=== PATIENT | female | born 1950 | race Caucasian/White ===

== ENCOUNTER 2021-09-04 11:20 | Inpatient (IN) | payer OTHER, MEDICARE, BC ==
[2021-09-04 12:12] LABS: Bacteria/HPF None Seen HPF (None Seen); Bilirubin Negative (Negative); Blood, Urine Negative (Negative); Clarity Clear (Clear); Glucose, Urine (Dipstick) Normal (Negative); Ketone, Urine Negative (Negative); Leukocyte Negative Leu/uL (Negative); Nitrite Negative (Negative); Protein, Urine (Dipstick) 200 mg/dL (Neg-Trace); RBC/HPF 0-3 HPF (0-3); Specific Gravity, Urine 1.009 (1.002-1.036); Squamous Epithelial None Seen HPF (0-3); Urobilinogen Normal mg/dL (Less than 2); WBC/HPF 0-3 HPF (0-3); pH, Urine 7.5 (5.0-9.0)
[2021-09-04 12:25] LABS: #Eosinphils 0.1 thou/uL (0.0-0.7); #Lymphocytes 1.1 thou/uL (1.20-3.40); #Monocytes 0.8 thou/uL (0.11-0.59); #Neutrophils 7.3 thou/uL (1.40-6.50); %Basophils 0.2 % (0.0-1.0); %Eosinophils 1.5 % (0.0-10.0); %Lymphocytes 11.5 % (21.0-51.0); %Neutrophils 77.9 % (42.0-75.0); Hemoglobin 13.2 g/dL (12.0-16.0); Mean Corpuscular HGB CONC 32.1 g/dL (32.0-36.0); Mean Corpuscular Hemoglobin 27.7 pg (27.0-31.0); Mean Corpuscular Volume 86.2 fL (78.0-98.0); Mean Platelet Volume 9.4 fL (7.4-10.4); Platelet Count 222 thou/uL (130-400); RBC Distribution Width 14.6 % (11.5-14.5); Red Blood Cell (RBC) Count 4.77 mill/uL (4.20-5.40); White Blood Cell (WBC) Count 9.3 thou/uL (4.8-10.8)
[2021-09-04 12:47] LABS: ALT (SGPT) 22 U/L (8-55); AST (SGOT) 27 U/L (5-34); Albumin 3.8 g/dL (3.4-4.8); Alkaline Phosphatase 100 U/L (40-110); Anion Gap 15 mmol/L (10-20); BUN (Urea Nitrogen) 18 mg/dL (9.8-20.1); Bilirubin, Total 0.5 mg/dL (0.2-1.2); CK (CPK) 59 U/L (29-168); Calc. Creatinine Clearance 0 mL/min (70-130); Carbon Dioxide 27 mmol/L (23-31); Chloride 104 mmol/L (98-107); Glucose 127 mg/dL (83-110); Protein, Total 7.8 g/dL (5.8-8.1); Sodium 142 mmol/L (136-145)
[2021-09-04 15:25] VITALS: BMI 28.3
[2021-09-04] MEDS ORDERED: Ondansetron ODT 4 MG TAB PO PRN (16:17)
[2021-09-04] MEDS ORDERED: Ondansetron PF 4 MG/2 ML Vial IVP PRN (16:18)
[2021-09-04] MEDS ORDERED: Acetaminophen 325 MG TAB PO PRN (16:19)
[2021-09-04 16:53] LABS: SARS-CoV-2 NAA Rapid Test Not Detected (NotDetected)
[2021-09-04] MEDS ORDERED: Acetaminophen 650 MG Suppository PR PRN (17:16)
[2021-09-04] MEDS ORDERED: Dextrose 5% in Water 1,000 ML IV PRN (17:29)
[2021-09-04] MEDS ORDERED: HumaLOG 300 UNITS/3 ML VIAL SC PRN ×2 (17:29)
[2021-09-04] MEDS ORDERED: Dextrose 50% Abboject 50 ML SYRINGE SLOW IVP PRN (17:29)
[2021-09-04] MEDS ORDERED: Electrolyte Replacement Protocol 1 EACH FS SCH (17:30)
[2021-09-04] MEDS ORDERED: hydrALAZINE 20 MG/ML VIAL ONE (18:27)
[2021-09-04] MEDS: hydrALAZINE 20 MG/ML VIAL SLOW IVP PRN (18:32)
[2021-09-04 18:50] LABS: #Eosinphils 0.2 thou/uL (0.0-0.7); #Lymphocytes 1.3 thou/uL (1.20-3.40); #Monocytes 0.7 thou/uL (0.11-0.59); #Neutrophils 5.5 thou/uL (1.40-6.50); %Basophils 0.1 % (0.0-1.0); %Eosinophils 2.2 % (0.0-10.0); %Monocytes 9.4 % (0.0-10.0); %Neutrophils 71.4 % (42.0-75.0); Hemoglobin 13.2 g/dL (12.0-16.0); Mean Corpuscular HGB CONC 32.8 g/dL (32.0-36.0); Mean Corpuscular Hemoglobin 27.9 pg (27.0-31.0); Mean Corpuscular Volume 85.1 fL (78.0-98.0); Mean Platelet Volume 9.5 fL (7.4-10.4); Platelet Count 221 thou/uL (130-400); RBC Distribution Width 14.5 % (11.5-14.5); Red Blood Cell (RBC) Count 4.74 mill/uL (4.20-5.40); White Blood Cell (WBC) Count 7.7 thou/uL (4.8-10.8)
[2021-09-04 19:09] LABS: Anion Gap 15 mmol/L (10-20); BUN (Urea Nitrogen) 17 mg/dL (9.8-20.1); Calc. Creatinine Clearance 44 mL/min (70-130); Calcium 9.7 mg/dL (7.8-10.44); Carbon Dioxide 27 mmol/L (23-31); Chloride 104 mmol/L (98-107); Glucose 111 mg/dL (83-110); Potassium 3.9 mmol/L (3.5-5.1); Sodium 142 mmol/L (136-145)
[2021-09-04 19:27] LABS: Actual Bicarbonate (HCO3a) 25.5 mEq/L (22-28); Base Excess (BEa) 3.2 mEq/L (-2.0 to +3.0); CO2 Tension 31.8 mmHg (35.0-45.0); Calcium, Ionized (arterial) 1.17 mmol/L (1.12-1.30); Carboxyhemoglobin (COHb) 0.7 gm% (0.0-3.0); Hemoglobin (Hb) 13.4 g/dL (12.0-16.0); O2 Tension (PaO2), arterial 81.2 mmHg (> 70.0); pH, Arterial 7.52 (7.35-7.45)
[2021-09-04 19:31] LABS: Puncture Site LRA
[2021-09-05 06:21] LABS: #Eosinphils 0.1 thou/uL (0.0-0.7); #Lymphocytes 1.3 thou/uL (1.20-3.40); #Neutrophils 4.7 thou/uL (1.40-6.50); %Basophils 0.3 % (0.0-1.0); %Eosinophils 1.1 % (0.0-10.0); %Lymphocytes 18.4 % (21.0-51.0); %Monocytes 14.2 % (0.0-10.0); %Neutrophils 65.9 % (42.0-75.0); Hemoglobin 12.6 g/dL (12.0-16.0); Mean Corpuscular HGB CONC 31.9 g/dL (32.0-36.0); Mean Corpuscular Volume 84.7 fL (78.0-98.0); Mean Platelet Volume 9.3 fL (7.4-10.4); Platelet Count 210 thou/uL (130-400); RBC Distribution Width 14.6 % (11.5-14.5); Red Blood Cell (RBC) Count 4.67 mill/uL (4.20-5.40); White Blood Cell (WBC) Count 7.1 thou/uL (4.8-10.8)
[2021-09-05 06:36] LABS: Anion Gap 15 mmol/L (10-20); BUN (Urea Nitrogen) 20 mg/dL (9.8-20.1); Calc. Creatinine Clearance 41 mL/min (70-130); Calcium 9.5 mg/dL (7.8-10.44); Carbon Dioxide 24 mmol/L (23-31); Chloride 104 mmol/L (98-107); Glucose 121 mg/dL (83-110); Magnesium 1.7 mg/dL (1.6-2.6); Potassium 3.6 mmol/L (3.5-5.1); Sodium 139 mmol/L (136-145)
[2021-09-05] MEDS: Enoxaparin Sodium 40 MG/0.4 ML SYRINGE SC SCH (08:38)
[2021-09-05] MEDS: Furosemide 20 MG/2 ML VIAL SLOW IVP SCH (08:39)
[2021-09-05] MEDS ORDERED: Losartan 25 MG TAB PO SCH (09:00)
[2021-09-05] MEDS ORDERED: Non-Formulary Item 1 EACH (Nitrofurantoin Macrocrystal [Nitrofurantoin] 100 MG Capsule) PO SCH (09:00)
[2021-09-05] MEDS: Carvedilol 6.25 MG TAB PO SCH ×2 (09:45→22:42)
[2021-09-05] MEDS: Nitrofurantoin Monohyd/M-Cryst 100 MG CAP PO SCH ×2 (09:45→22:43)
[2021-09-05] MEDS: Aspirin 81 mg Enteric Coated Tablet PO SCH (09:45)
[2021-09-05] MEDS: Rosuvastatin 10 MG TAB PO SCH (09:46)
[2021-09-05] MEDS ORDERED: Magnesium 2 GM/50 ML 2 GM in Premix Bag 1 BAG IVPB SCH (10:00)
[2021-09-05] MEDS ORDERED: Cyanocobalamin 1000 MCG/ML VIAL IM SCH (17:00)
[2021-09-06 06:06] LABS: #Eosinphils 0.3 thou/uL (0.0-0.7); #Lymphocytes 1.4 thou/uL (1.20-3.40); %Basophils 0.4 % (0.0-1.0); %Eosinophils 4.1 % (0.0-10.0); %Lymphocytes 20.5 % (21.0-51.0); %Monocytes 14.5 % (0.0-10.0); %Neutrophils 60.6 % (42.0-75.0); Mean Corpuscular HGB CONC 32.1 g/dL (32.0-36.0); Mean Corpuscular Hemoglobin 27.1 pg (27.0-31.0); Mean Corpuscular Volume 84.5 fL (78.0-98.0); Mean Platelet Volume 9.8 fL (7.4-10.4); Platelet Count 176 thou/uL (130-400); RBC Distribution Width 14.7 % (11.5-14.5); Red Blood Cell (RBC) Count 4.43 mill/uL (4.20-5.40); White Blood Cell (WBC) Count 6.6 thou/uL (4.8-10.8)
[2021-09-06 06:23] LABS: Phosphorus 3.6 mg/dL (2.3-4.7)
[2021-09-06 06:25] LABS: Anion Gap 13 mmol/L (10-20); BUN (Urea Nitrogen) 26 mg/dL (9.8-20.1); Calc. Creatinine Clearance 41 mL/min (70-130); Calcium 9.4 mg/dL (7.8-10.44); Carbon Dioxide 23 mmol/L (23-31); Chloride 104 mmol/L (98-107); Glucose 118 mg/dL (83-110); Potassium 3.3 mmol/L (3.5-5.1); Sodium 137 mmol/L (136-145)
[2021-09-06] MEDS ORDERED: Potassium Chloride 20 MEQ TAB PO SCH (07:00)
[2021-09-06] MEDS ORDERED: Magnesium 2 GM/50 ML 2 GM in Premix Bag 1 BAG IVPB SCH (07:00)
[2021-09-06] MEDS ORDERED: Cyanocobalamin (Vitamin B-12) 1,000 MCG TAB PO SCH (09:00)
[2021-09-06] MEDS: Rosuvastatin 10 MG TAB PO SCH (09:46)
[2021-09-06] MEDS: Aspirin 81 mg Enteric Coated Tablet PO SCH (09:46)
[2021-09-06] MEDS: Nitrofurantoin Monohyd/M-Cryst 100 MG CAP PO SCH ×2 (09:47→20:52)
[2021-09-06] MEDS: Carvedilol 6.25 MG TAB PO SCH ×2 (09:47→20:52)
[2021-09-06] MEDS: Furosemide 20 MG/2 ML VIAL SLOW IVP SCH (09:47)
[2021-09-06] MEDS: Enoxaparin Sodium 40 MG/0.4 ML SYRINGE SC SCH (09:47)
[2021-09-07] MEDS: hydrALAZINE 20 MG/ML VIAL SLOW IVP PRN (05:14)
[2021-09-07 06:03] LABS: Phosphorus 3.2 mg/dL (2.3-4.7)
[2021-09-07 06:08] LABS: Anion Gap 14 mmol/L (10-20); BUN (Urea Nitrogen) 28 mg/dL (9.8-20.1); Calc. Creatinine Clearance 46 mL/min (70-130); Calcium 9.5 mg/dL (7.8-10.44); Carbon Dioxide 24 mmol/L (23-31); Chloride 104 mmol/L (98-107); Glucose 125 mg/dL (83-110); Magnesium 2.2 mg/dL (1.6-2.6); Potassium 3.5 mmol/L (3.5-5.1); Sodium 138 mmol/L (136-145)
[2021-09-07] MEDS ORDERED: Potassium Chloride 20 MEQ TAB PO SCH (07:00)
[2021-09-07] MEDS ORDERED: Cyanocobalamin 1000 MCG/ML VIAL IM SCH (08:30)
[2021-09-07] MEDS: Aspirin 81 mg Enteric Coated Tablet PO SCH (09:55)
[2021-09-07] MEDS: Nitrofurantoin Monohyd/M-Cryst 100 MG CAP PO SCH ×2 (09:55→20:45)
[2021-09-07] MEDS: Carvedilol 6.25 MG TAB PO SCH ×2 (09:56→20:45)
[2021-09-07] MEDS: Rosuvastatin 10 MG TAB PO SCH (09:56)
[2021-09-07] MEDS: Enoxaparin Sodium 40 MG/0.4 ML SYRINGE SC SCH (09:57)
[2021-09-07] MEDS ORDERED: Melatonin 3 MG TAB PO SCH ×2 (19:38→22:09)
[2021-09-07] MEDS ORDERED: Cyanocobalamin (Vitamin B-12) 1,000 MCG TAB PO SCH (21:00)
[2021-09-08 05:14] LABS: #Eosinphils 0.3 thou/uL (0.0-0.7); #Lymphocytes 1.4 thou/uL (1.20-3.40); %Basophils 0.4 % (0.0-1.0); %Eosinophils 4.4 % (0.0-10.0); %Lymphocytes 18.1 % (21.0-51.0); %Monocytes 12.7 % (0.0-10.0); %Neutrophils 64.4 % (42.0-75.0); Hemoglobin 12.3 g/dL (12.0-16.0); Mean Corpuscular Hemoglobin 27.2 pg (27.0-31.0); Mean Platelet Volume 9.1 fL (7.4-10.4); Platelet Count 213 thou/uL (130-400); RBC Distribution Width 14.5 % (11.5-14.5); Red Blood Cell (RBC) Count 4.51 mill/uL (4.20-5.40); White Blood Cell (WBC) Count 7.8 thou/uL (4.8-10.8)
[2021-09-08 05:36] LABS: Anion Gap 15 mmol/L (10-20); BUN (Urea Nitrogen) 30 mg/dL (9.8-20.1); Calc. Creatinine Clearance 46 mL/min (70-130); Calcium 9.8 mg/dL (7.8-10.44); Carbon Dioxide 20 mmol/L (23-31); Chloride 105 mmol/L (98-107); Glucose 126 mg/dL (83-110); Potassium 3.8 mmol/L (3.5-5.1); Sodium 136 mmol/L (136-145)
[2021-09-08] MEDS: Rosuvastatin 10 MG TAB PO SCH (08:12)
[2021-09-08] MEDS: Aspirin 81 mg Enteric Coated Tablet PO SCH (08:12)
[2021-09-08] MEDS: Carvedilol 6.25 MG TAB PO SCH (08:13)
[2021-09-08] MEDS: Nitrofurantoin Monohyd/M-Cryst 100 MG CAP PO SCH (08:16)
[2021-09-08] MEDS: Enoxaparin Sodium 40 MG/0.4 ML SYRINGE SC SCH (08:17)
[2021-09-08] MEDS ORDERED: Cyanocobalamin 1000 MCG/ML VIAL IM SCH (09:00)
[2021-09-08 11:59] VITALS: TEMP 97.6
[2021-09-08 16:57] VITALS: BP 161/66
== END 2021-09-08 18:12 | disposition home health service (06) | DRG 291 ==
LOC: ERS 11:20 → ERHOLD 14:59 → NEURO 19:17 → OBSVTOIN 09-05 08:37
PROVIDERS: ADMIT Internal Medicine; ATTEND Internal Medicine
DX: I13.0 Hypertensive heart and chronic kidney disease with heart failure and stage 1 through stage 4 chronic kidney disease, or unspecified chronic kidney disease (principal); G93.41 Metabolic encephalopathy; I50.33 Acute on chronic diastolic (congestive) heart failure; N17.9 Acute kidney failure, unspecified; N39.0 Urinary tract infection, site not specified; I47.2 Ventricular tachycardia; D32.9 Benign neoplasm of meninges, unspecified; E78.5 Hyperlipidemia, unspecified; I25.10 Atherosclerotic heart disease of native coronary artery without angina pectoris; F41.9 Anxiety disorder, unspecified; E83.42 Hypomagnesemia; N18.30 Chronic kidney disease, stage 3 unspecified; E53.8 Deficiency of other specified B group vitamins; E87.6 Hypokalemia; G40.909 Epilepsy, unspecified, not intractable, without status epilepticus; E11.22 Type 2 diabetes mellitus with diabetic chronic kidney disease; W19.XXXA Unspecified fall, initial encounter; Z20.822 Contact with and (suspected) exposure to COVID-19; Y92.89 Other specified places as the place of occurrence of the external cause; Z91.040 Latex allergy status; Z88.0 Allergy status to penicillin; Z88.2 Allergy status to sulfonamides; Z91.048 Other nonmedicinal substance allergy status; Z79.82 Long term (current) use of aspirin; Z79.899 Other long term (current) drug therapy; I25.2 Old myocardial infarction; Z85.528 Personal history of other malignant neoplasm of kidney; Z95.5 Presence of coronary angioplasty implant and graft; Z94.7 Corneal transplant status
CPT/HCPCS: 36415; 36416; 36600; 51701; 70450; 70553; 71045; 72125; 80048; 80053; 81003; 81015; 82140; 82550; 82553; 82805; 83735; 83880; 84100; 84484; 85025; 87040; 93005; 93306; 93880; 93970; 94760; 96374; 96375; 97139; G0378; J0360; J1650; J1940; J1956; J3420; J3475; U0002

== ENCOUNTER 2021-11-09 16:14 | Outpatient (CLI) | payer BC ==
[2021-11-09 16:42] LABS: Mean Corpuscular HGB CONC 30.4 g/dL (32.0-36.0); Mean Corpuscular Hemoglobin 25.9 pg (27.0-33.0); Mean Corpuscular Volume 85.1 fl (81.6-98.3); Mean Platelet Volume 11.4 fl (7.4-10.4); Platelet Count 233 10x3/uL (150-450); RBC Distribution Width 15.2 % (11.5-14.5); Red Blood Cell (RBC) Count 4.64 10x6/uL (3.90-5.03); White Blood Cell (WBC) Count 5.5 10x3/uL (3.5-10.5)
[2021-11-09 17:08] LABS: INR-International Normal Ratio 0.9; Prothrombin Time 10.5 sec (9.5-12.1)
[2021-11-09 17:16] LABS: Anion Gap 14 mmol/L (10-20); BUN (Urea Nitrogen) 21 mg/dL (9.8-20.1); Calc. Creatinine Clearance 0 mL/min (70-130); Carbon Dioxide 25 mmol/L (23-31); Chloride 104 mmol/L (98-107); Glucose 102 mg/dL (83-110); Potassium 4.1 mmol/L (3.5-5.1); Sodium 139 mmol/L (136-145)
[2021-11-10 11:15] LABS: SARS-CoV-2 PCR by NAA Not Detected (NotDetected)
== END 2021-11-09 16:15 | disposition home or self-care (01) ==
LOC: LABBT 16:14
PROVIDERS: ATTEND Internal Medicine Cardiovascular Disease
DX: Z01.812 Encounter for preprocedural laboratory examination (principal); I47.1 Supraventricular tachycardia; Z20.822 Contact with and (suspected) exposure to COVID-19
CPT/HCPCS: 80048; 85027; 85610; U0003; U0005

== ENCOUNTER 2021-11-11 07:55 | Day surgery (SDC) | payer MEDICARE, BC ==
[2021-11-08 15:13] VITALS: BMI 27.3
[2021-11-11] MEDS ORDERED: Heparin 10,000 UNITS/ 10 ML VIAL ONE ×2 (09:30→11:39)
[2021-11-11] MEDS ORDERED: Meperidine HCl/PF 25 MG/ML VIAL ONE (10:48)
[2021-11-11] MEDS ORDERED: PROPOFOL 200 MG/20 ML VIAL ONE (10:54)
[2021-11-11] MEDS ORDERED: Promethazine HCl 25 MG/ML VIAL ONE (14:07)
== END 2021-11-11 17:10 | disposition home or self-care (01) ==
LOC: SDC 07:55
PROVIDERS: ATTEND Internal Medicine Cardiovascular Disease
PROC: 02583ZZ Destruction of Conduction Mechanism, Percutaneous Approach (ICD-10-PCS; principal; 2021-11-11)
PROC: 02K83ZZ Map Conduction Mechanism, Percutaneous Approach (ICD-10-PCS; 2021-11-11)
DX: I47.1 Supraventricular tachycardia (principal); I25.10 Atherosclerotic heart disease of native coronary artery without angina pectoris; I48.0 Paroxysmal atrial fibrillation; I11.0 Hypertensive heart disease with heart failure; I50.22 Chronic systolic (congestive) heart failure; E78.2 Mixed hyperlipidemia; Z79.02 Long term (current) use of antithrombotics/antiplatelets; Z79.2 Long term (current) use of antibiotics; Z79.899 Other long term (current) drug therapy; Z88.0 Allergy status to penicillin; Z88.2 Allergy status to sulfonamides; Z88.8 Allergy status to other drugs, medicaments and biological substances; Z91.040 Latex allergy status; Z91.048 Other nonmedicinal substance allergy status; Z95.5 Presence of coronary angioplasty implant and graft
CPT/HCPCS: 93005; 93613; 93653; C1730; C1776; C1894; C2630; J1644; J2175; J2550; J2704

== ENCOUNTER 2021-11-19 04:05 | Inpatient (IN) | payer MEDICARE, BC ==
[2021-11-19] MEDS ORDERED: Morphine 10 MG/ML VIAL ONE (05:07)
[2021-11-19] MEDS ORDERED: Iopamidol 370 76% 100 ML VIAL ONE (09:45)
[2021-11-19 10:06] LABS: #Eosinphils 0.1 thou/uL (0.0-0.7); #Lymphocytes 1.2 thou/uL (1.20-3.40); #Monocytes 1.1 thou/uL (0.11-0.59); %Basophils 0.1 % (0.0-1.0); %Lymphocytes 9.6 % (21.0-51.0); %Monocytes 8.7 % (0.0-10.0); %Neutrophils 80.5 % (42.0-75.0); Mean Corpuscular HGB CONC 30.6 g/dL (32.0-36.0); Mean Corpuscular Hemoglobin 26.1 pg (27.0-31.0); Mean Corpuscular Volume 85.5 fL (78.0-98.0); Mean Platelet Volume 8.3 fL (7.4-10.4); Platelet Count 207 thou/uL (130-400); RBC Distribution Width 14.7 % (11.5-14.5); Red Blood Cell (RBC) Count 4.59 mill/uL (4.20-5.40); White Blood Cell (WBC) Count 12.4 thou/uL (4.8-10.8)
[2021-11-19 10:21] LABS: Glucose 124 mg/dL (83-110)
[2021-11-19 10:28] LABS: ALT (SGPT) 35 U/L (8-55); AST (SGOT) 49 U/L (5-34); Albumin 3.5 g/dL (3.4-4.8); Alkaline Phosphatase 107 U/L (40-110); Anion Gap 18 mmol/L (10-20); BUN (Urea Nitrogen) 20 mg/dL (9.8-20.1); Bilirubin, Total 0.4 mg/dL (0.2-1.2); Calc. Creatinine Clearance 0 mL/min (70-130); Calcium 8.7 mg/dL (7.8-10.44); Carbon Dioxide 21 mmol/L (23-31); Chloride 107 mmol/L (98-107); Globulin 3.1 g/dL (2.4-3.5); Glucose 126 mg/dL (83-110); Potassium 4.5 mmol/L (3.5-5.1); Protein, Total 6.6 g/dL (5.8-8.1); Sodium 141 mmol/L (136-145)
[2021-11-19 10:43] LABS: Bacteria/HPF None Seen HPF (None Seen); Bilirubin Negative (Negative); Blood, Urine Negative (Negative); Clarity Clear (Clear); Glucose, Urine (Dipstick) Normal (Negative); Ketone, Urine Negative (Negative); Leukocyte Negative Leu/uL (Negative); Nitrite Negative (Negative); Protein, Urine (Dipstick) 200 mg/dL (Neg-Trace); RBC/HPF 0-3 HPF (0-3); Specific Gravity, Urine 1.012 (1.002-1.036); Squamous Epithelial 0-3 HPF (0-3); Urobilinogen Normal mg/dL (Less than 2); WBC/HPF 0-3 HPF (0-3); pH, Urine 6.5 (5.0-9.0)
[2021-11-19] MEDS ORDERED: TOLTERODINE TARTRATE 4 MG PO PRN (11:34)
[2021-11-19] MEDS ORDERED: Gabapentin 300 MG CAP PO PRN (11:34)
[2021-11-19] MEDS ORDERED: Ondansetron PF 4 MG/2 ML Vial IVP PRN (11:37)
[2021-11-19 12:22] LABS: Lactic Acid 1.3 mmol/L (0.5-2.2)
[2021-11-19 12:24] LABS: Phosphorus 4.2 mg/dL (2.3-4.7)
[2021-11-19 12:25] LABS: CK (CPK) 47 U/L (29-168); Magnesium 1.9 mg/dL (1.6-2.6)
[2021-11-19] MEDS ORDERED: Naloxone HCl 0.4 mg/ml Vial IV SCH (13:31)
[2021-11-19] MEDS ORDERED: Sodium Chloride 0.9% 1,000 ML IV SCH (13:45)
[2021-11-19 18:57] VITALS: BMI 27.4
[2021-11-19] MEDS: Acetaminophen 325 MG TAB PO PRN (20:17)
[2021-11-19] MEDS ORDERED: Rosuvastatin 10 MG TAB PO SCH (21:00)
[2021-11-19] MEDS ORDERED: Famotidine/PF 20 mg/2ml Vial SLOW IVP SCH (21:00)
[2021-11-20 05:11] LABS: #Eosinphils 0.5 thou/uL (0.0-0.7); #Lymphocytes 1.6 thou/uL (1.20-3.40); #Monocytes 0.7 thou/uL (0.11-0.59); #Neutrophils 4.1 thou/uL (1.40-6.50); %Basophils 0.5 % (0.0-1.0); %Eosinophils 7.8 % (0.0-10.0); %Lymphocytes 22.9 % (21.0-51.0); %Monocytes 9.4 % (0.0-10.0); %Neutrophils 59.5 % (42.0-75.0); Hemoglobin 10.1 g/dL (12.0-16.0); Mean Corpuscular HGB CONC 31.1 g/dL (32.0-36.0); Mean Corpuscular Hemoglobin 27.2 pg (27.0-31.0); Mean Corpuscular Volume 87.4 fL (78.0-98.0); Mean Platelet Volume 8.7 fL (7.4-10.4); Platelet Count 164 thou/uL (130-400); RBC Distribution Width 14.7 % (11.5-14.5); Red Blood Cell (RBC) Count 3.71 mill/uL (4.20-5.40)
[2021-11-20 05:38] LABS: Anion Gap 11 mmol/L (10-20); BUN (Urea Nitrogen) 19 mg/dL (9.8-20.1); Calc. Creatinine Clearance 42 mL/min (70-130); Calcium 8.7 mg/dL (7.8-10.44); Carbon Dioxide 27 mmol/L (23-31); Chloride 107 mmol/L (98-107); Glucose 94 mg/dL (83-110); Magnesium 1.7 mg/dL (1.6-2.6); Phosphorus 3.4 mg/dL (2.3-4.7); Potassium 4.5 mmol/L (3.5-5.1); Sodium 140 mmol/L (136-145)
[2021-11-20] MEDS ORDERED: Clopidogrel Bisulfate 75 MG TAB PO SCH (09:00)
[2021-11-20] MEDS: Acetaminophen 325 MG TAB PO PRN (14:36)
[2021-11-20 15:33] VITALS: BP 148/73; TEMP 100.1
== END 2021-11-20 17:18 | DRG 551 ==
LOC: ERS 04:05 → SURG A 11:22
PROVIDERS: ADMIT Surgery; ATTEND Surgery
DX: S32.19XA Other fracture of sacrum, initial encounter for closed fracture (principal); G92.8 Other toxic encephalopathy; S32.592A Other specified fracture of left pubis, initial encounter for closed fracture; I10 Essential (primary) hypertension; E78.5 Hyperlipidemia, unspecified; I25.10 Atherosclerotic heart disease of native coronary artery without angina pectoris; E11.42 Type 2 diabetes mellitus with diabetic polyneuropathy; W18.30XA Fall on same level, unspecified, initial encounter; Y92.009 Unspecified place in unspecified non-institutional (private) residence as the place of occurrence of the external cause; Z95.5 Presence of coronary angioplasty implant and graft; Z85.528 Personal history of other malignant neoplasm of kidney; Z90.5 Acquired absence of kidney; Z79.02 Long term (current) use of antithrombotics/antiplatelets; Z79.899 Other long term (current) drug therapy; Z88.0 Allergy status to penicillin; Z88.2 Allergy status to sulfonamides; Z88.8 Allergy status to other drugs, medicaments and biological substances; Z91.040 Latex allergy status; Z98.84 Bariatric surgery status; Z90.49 Acquired absence of other specified parts of digestive tract; Z98.49 Cataract extraction status, unspecified eye
CPT/HCPCS: 36415; 36416; 51701; 70450; 70496; 70498; 72170; 80048; 80053; 81003; 81015; 82140; 82550; 83605; 83735; 84100; 84146; 85025; 96372; G0390; J2270; J2310; J3475; J3490; J7050; Q9967; S0028

== ENCOUNTER 2021-12-30 09:12 | Outpatient (CLI) | payer BC ==
[2021-12-30] MEDS ORDERED: Iopamidol-370 76% 500 ML 1 ML ONE (12:29)
== END 2021-12-30 09:13 | disposition home or self-care (01) ==
LOC: BICCT 09:12
PROVIDERS: ATTEND Urology
DX: C64.1 Malignant neoplasm of right kidney, except renal pelvis (principal); K86.2 Cyst of pancreas; N28.9 Disorder of kidney and ureter, unspecified; R91.8 Other nonspecific abnormal finding of lung field; M84.454A Pathological fracture, pelvis, initial encounter for fracture; I25.10 Atherosclerotic heart disease of native coronary artery without angina pectoris; I77.810 Thoracic aortic ectasia; K76.9 Liver disease, unspecified; Z90.49 Acquired absence of other specified parts of digestive tract; N28.1 Cyst of kidney, acquired; K57.30 Diverticulosis of large intestine without perforation or abscess without bleeding; M19.90 Unspecified osteoarthritis, unspecified site; Z87.81 Personal history of (healed) traumatic fracture; Z90.5 Acquired absence of kidney; Z98.1 Arthrodesis status
CPT/HCPCS: 71260; 74177; Q9967

== ENCOUNTER 2022-02-22 15:53 | Outpatient (CLI) | payer BC | END 2022-02-22 15:54 | disposition home or self-care (01) | LOC: BICRAD 15:53 | PROVIDERS: ATTEND Podiatrist Foot & Ankle Surgery | DX: S83.92XA Sprain of unspecified site of left knee, initial encounter (principal); S63.502A Unspecified sprain of left wrist, initial encounter; S63.501A Unspecified sprain of right wrist, initial encounter; M19.032 Primary osteoarthritis, left wrist; M85.831 Other specified disorders of bone density and structure, right forearm ==

== ENCOUNTER 2022-06-07 09:27 | Inpatient (IN) | payer MEDICARE, BC ==
[2022-06-07 10:40] LABS: #Eosinphils 0.2 thou/uL (0.0-0.7); #Lymphocytes 1.4 thou/uL (1.20-3.40); #Monocytes 0.6 thou/uL (0.11-0.59); #Neutrophils 3.4 thou/uL (1.40-6.50); %Basophils 0.7 % (0.0-1.0); %Eosinophils 3.5 % (0.0-10.0); %Lymphocytes 24.3 % (21.0-51.0); %Monocytes 10.4 % (0.0-10.0); %Neutrophils 61.2 % (42.0-75.0); Hemoglobin 12.4 g/dL (12.0-16.0); Mean Corpuscular HGB CONC 31.9 g/dL (32.0-36.0); Mean Corpuscular Volume 87.9 fL (78.0-98.0); Mean Platelet Volume 9.2 fL (7.4-10.4); Platelet Count 159 thou/uL (130-400); RBC Distribution Width 14.2 % (11.5-14.5); Red Blood Cell (RBC) Count 4.41 mill/uL (4.20-5.40); White Blood Cell (WBC) Count 5.6 thou/uL (4.8-10.8)
[2022-06-07] MEDS ORDERED: Morphine 4 MG/ML VIAL ONE ×2 (10:43→12:51)
[2022-06-07] MEDS ORDERED: Morphine 2 MG/ML VIAL ONE (10:44)
[2022-06-07 11:01] LABS: ALT (SGPT) 20 U/L (8-55); AST (SGOT) 29 U/L (5-34); Albumin 3.4 g/dL (3.4-4.8); Alkaline Phosphatase 91 U/L (40-110); Anion Gap 13 mmol/L (10-20); BUN (Urea Nitrogen) 14 mg/dL (9.8-20.1); Bilirubin, Total 0.5 mg/dL (0.2-1.2); Calc. Creatinine Clearance 0 mL/min (70-130); Calcium 9.2 mg/dL (7.8-10.44); Carbon Dioxide 29 mmol/L (23-31); Chloride 105 mmol/L (98-107); Estimated GFR 34; Globulin 3.3 g/dL (2.4-3.5); Glucose 114 mg/dL (83-110); Potassium 3.8 mmol/L (3.5-5.1); Protein, Total 6.7 g/dL (5.8-8.1); Sodium 143 mmol/L (136-145)
[2022-06-07 11:40] LABS: CK (CPK) 55 U/L (29-168)
[2022-06-07 11:44] LABS: Bacteria/HPF None Seen HPF (None Seen); Bilirubin Negative (Negative); Blood, Urine Negative (Negative); Clarity Clear (Clear); Glucose, Urine (Dipstick) Normal (Negative); Ketone, Urine Negative (Negative); Leukocyte Negative Leu/uL (Negative); Nitrite Negative (Negative); Protein, Urine (Dipstick) 100 mg/dL (Neg-Trace); RBC/HPF 0-3 HPF (0-3); Specific Gravity, Urine 1.007 (1.002-1.036); Squamous Epithelial 0-3 HPF (0-3); Urobilinogen Normal mg/dL (Less than 2); WBC/HPF 0-3 HPF (0-3); pH, Urine 7.5 (5.0-9.0)
[2022-06-07] MEDS ORDERED: Clindamycin/D5W 900 MG in Premix Bag 1 BAG IVPB SCH (12:45)
[2022-06-07] MEDS ORDERED: hydrALAZINE 20 MG/ML VIAL ONE ×3 (13:12→18:05)
[2022-06-07] MEDS ORDERED: Dextrose 5% in Water 1,000 ML IV PRN (13:38)
[2022-06-07] MEDS ORDERED: Ondansetron PF 4 MG/2 ML Vial IVP PRN (13:38)
[2022-06-07] MEDS ORDERED: hydrALAZINE 20 MG/ML VIAL SLOW IVP PRN (13:38)
[2022-06-07] MEDS ORDERED: Dextrose 50% Abboject 50 ML SYRINGE SLOW IVP PRN (13:38)
[2022-06-07] MEDS ORDERED: Morphine 4 MG/ML VIAL SLOW IVP PRN (13:38)
[2022-06-07] MEDS ORDERED: Morphine 2 MG/ML VIAL SLOW IVP PRN (13:38)
[2022-06-07] MEDS ORDERED: Ondansetron ODT 4 MG TAB PO PRN (13:38)
[2022-06-07] MEDS ORDERED: traMADol HCl 50 MG TAB PO PRN ×2 (13:44→20:35)
[2022-06-07] MEDS ORDERED: Cyclobenzaprine 10 MG TAB PO PRN (13:44)
[2022-06-07 13:45] LABS: SARS-CoV-2 NAA Rapid Test Not Detected (NotDetected)
[2022-06-07] MEDS ORDERED: Sodium Chloride 0.9% 1,000 ML IV SCH (13:45)
[2022-06-07 13:47] LABS: Magnesium 1.9 mg/dL (1.6-2.6); Phosphorus 3.8 mg/dL (2.3-4.7)
[2022-06-07] MEDS ORDERED: traMADol HCl 50 MG TAB PO SCH ×2 (14:00→18:00)
[2022-06-07] MEDS ORDERED: Acetaminophen 500 MG TAB PO SCH (14:00)
[2022-06-07] MEDS ORDERED: Ondansetron PF 4 MG/2 ML Vial ONE (14:22)
[2022-06-07] MEDS ORDERED: Bupivacaine PF 0.5% 30 ML VIAL ONE (14:27)
[2022-06-07] MEDS ORDERED: Phenylephrine 10 MG/ML VIAL ONE (14:49)
[2022-06-07] MEDS ORDERED: Famotidine/PF 20 mg/2ml Vial ONE (14:49)
[2022-06-07] MEDS ORDERED: fentaNYL Citrate/PF 100 MCG/2 ML SYRINGE ONE ×2 (15:05→15:41)
[2022-06-07] MEDS ORDERED: Levofloxacin 500 mg/D5W 100 ml Premix Bag ONE (15:10)
[2022-06-07] MEDS ORDERED: Clindamycin/D5W 900 mg/50 ml Premix Bag ONE (15:10)
[2022-06-07] MEDS ORDERED: Rocuronium Bromide 10 MG/ML (10ML VIAL) ONE (15:14)
[2022-06-07] MEDS ORDERED: Lidocaine 1% MPF 2 ML VIAL ONE (15:14)
[2022-06-07] MEDS ORDERED: ePHEDrine 50 MG/ML VIAL ONE (15:14)
[2022-06-07] MEDS ORDERED: Succinylcholine 200 MG/10 ml SYRINGE FS ONE (15:14)
[2022-06-07] MEDS ORDERED: Promethazine HCl 25 MG/ML VIAL IM PRN (16:49)
[2022-06-07] MEDS ORDERED: PACU-Morphine 4MG/ML VIAL SLOW IVP PRN (16:49)
[2022-06-07] MEDS ORDERED: Promethazine HCl 25 MG/ML VIAL IVPB PRN (16:49)
[2022-06-07] MEDS ORDERED: Ondansetron HCl/PF 4 MG/2 ML Vial IVP PRN (16:49)
[2022-06-07] MEDS ORDERED: SUGAMMADEX SODIUM 200 MG/2 ML VIAL ONE (17:05)
[2022-06-07] MEDS: Acetaminophen 500 MG TAB PO SCH ×2 (19:17→23:24)
[2022-06-07 19:34] VITALS: BMI 32.8
[2022-06-07] MEDS ORDERED: Non-Formulary Item 1 EACH (Melatonin [Melatonin] 5 MG Tablet) PO PRN (19:49)
[2022-06-07] MEDS ORDERED: Losartan 25 MG TAB PO SCH (19:50)
[2022-06-07] MEDS: Senokot S 8.6-50 MG TAB PO SCH (20:05)
[2022-06-07] MEDS: Rosuvastatin 10 MG TAB PO SCH (20:23)
[2022-06-07] MEDS: Melatonin 3 MG TAB PO SCH (20:23)
[2022-06-07] MEDS: Amitriptyline HCl 10 MG TAB PO SCH (20:24)
[2022-06-07] MEDS: traMADol HCl 50 MG TAB PO SCH (20:46)
[2022-06-07] MEDS: Trospium 20 MG TAB PO SCH (20:52)
[2022-06-07] MEDS ORDERED: Famotidine 20 MG TAB PO SCH (21:00)
[2022-06-07] MEDS ORDERED: Gabapentin 300 MG CAP PO PRN (21:00)
[2022-06-07] MEDS: Clindamycin/D5W 900 MG in Premix Bag 1 BAG IVPB SCH (23:24)
[2022-06-08] MEDS: traMADol HCl 50 MG TAB PO SCH (06:03)
[2022-06-08] MEDS: Acetaminophen 500 MG TAB PO SCH (06:03)
[2022-06-08] MEDS: Clindamycin/D5W 900 MG in Premix Bag 1 BAG IVPB SCH ×2 (06:03→12:03)
[2022-06-08 06:26] LABS: #Eosinphils 0.1 thou/uL (0.0-0.7); #Monocytes 1.1 thou/uL (0.11-0.59); #Neutrophils 5.4 thou/uL (1.40-6.50); %Basophils 0.2 % (0.0-1.0); %Eosinophils 1.6 % (0.0-10.0); %Lymphocytes 13.5 % (21.0-51.0); %Monocytes 14.4 % (0.0-10.0); %Neutrophils 70.3 % (42.0-75.0); Hemoglobin 10.6 g/dL (12.0-16.0); Mean Corpuscular HGB CONC 32.4 g/dL (32.0-36.0); Mean Corpuscular Hemoglobin 28.4 pg (27.0-31.0); Mean Corpuscular Volume 87.6 fL (78.0-98.0); Mean Platelet Volume 9.2 fL (7.4-10.4); Platelet Count 139 thou/uL (130-400); RBC Distribution Width 14.2 % (11.5-14.5); Red Blood Cell (RBC) Count 3.73 mill/uL (4.20-5.40); White Blood Cell (WBC) Count 7.7 thou/uL (4.8-10.8)
[2022-06-08 06:50] LABS: Anion Gap 14 mmol/L (10-20); BUN (Urea Nitrogen) 21 mg/dL (9.8-20.1); Calc. Creatinine Clearance 37 mL/min (70-130); Calcium 8.4 mg/dL (7.8-10.44); Carbon Dioxide 23 mmol/L (23-31); Chloride 103 mmol/L (98-107); Estimated GFR 30; Glucose 119 mg/dL (83-110); Magnesium 1.6 mg/dL (1.6-2.6); Potassium 4.2 mmol/L (3.5-5.1); Sodium 136 mmol/L (136-145)
[2022-06-08 06:51] LABS: Phosphorus 4.3 mg/dL (2.3-4.7)
[2022-06-08 07:13] LABS: Bacteria/HPF None Seen HPF (None Seen); Bilirubin Negative (Negative); Blood, Urine Negative (Negative); Clarity Clear (Clear); Glucose, Urine (Dipstick) Normal (Negative); Ketone, Urine Negative (Negative); Leukocyte Negative Leu/uL (Negative); Nitrite Negative (Negative); Protein, Urine (Dipstick) 200 mg/dL (Neg-Trace); RBC/HPF 0-3 HPF (0-3); Specific Gravity, Urine 1.009 (1.002-1.036); Squamous Epithelial None Seen HPF (0-3); Urobilinogen Normal mg/dL (Less than 2); WBC/HPF None Seen HPF (0-3)
[2022-06-08 07:15] LABS: Urine Culture Reflex No No
[2022-06-08] MEDS ORDERED: Magnesium Sulfate 3 GM in Sodium Chloride 0.9% 100 ML IVPB SCH (07:30)
[2022-06-08] MEDS ORDERED: Sodium Chloride 0.9% 1,000 ML IV SCH (07:30)
[2022-06-08] MEDS ORDERED: Magnesium 2 GM/50 ML(in water) 3 GM in Premix Bag 1 BAG IVPB SCH (09:00)
[2022-06-08] MEDS ORDERED: Losartan 25 MG TAB PO SCH (09:00)
[2022-06-08] MEDS: Trospium 20 MG TAB PO SCH (09:04)
[2022-06-08] MEDS: Polyethylene Glycol 3350 17 GM Packet PO SCH (09:04)
[2022-06-08] MEDS: Famotidine 20 MG TAB PO SCH (09:05)
[2022-06-08] MEDS: Senokot S 8.6-50 MG TAB PO SCH ×2 (09:05→21:12)
[2022-06-08] MEDS ORDERED: Acetaminophen/Codeine 30-300mg Tablet PO PRN (10:44)
[2022-06-08] MEDS ORDERED: Acetaminophen 500 MG TAB PO SCH (12:00)
[2022-06-08] MEDS: Acetaminophen 325 MG TAB PO SCH (18:48)
[2022-06-08] MEDS: Rosuvastatin 10 MG TAB PO SCH (21:11)
[2022-06-08] MEDS: Melatonin 3 MG TAB PO SCH (21:11)
[2022-06-08] MEDS: Amitriptyline HCl 10 MG TAB PO SCH (21:11)
[2022-06-09] MEDS: Acetaminophen 325 MG TAB PO SCH ×4 (00:01→18:12)
[2022-06-09 06:10] LABS: #Eosinphils 0.4 thou/uL (0.0-0.7); #Neutrophils 4.9 thou/uL (1.40-6.50); %Basophils 0.2 % (0.0-1.0); %Eosinophils 5.5 % (0.0-10.0); %Lymphocytes 14.1 % (21.0-51.0); %Monocytes 13.2 % (0.0-10.0); Hemoglobin 9.5 g/dL (12.0-16.0); Mean Corpuscular HGB CONC 32.1 g/dL (32.0-36.0); Mean Corpuscular Hemoglobin 28.4 pg (27.0-31.0); Mean Corpuscular Volume 88.3 fL (78.0-98.0); Mean Platelet Volume 9.2 fL (7.4-10.4); Platelet Count 108 thou/uL (130-400); Platelet Morphology Comment Appears Decreased; RBC Distribution Width 14.2 % (11.5-14.5); Red Blood Cell (RBC) Count 3.35 mill/uL (4.20-5.40); White Blood Cell (WBC) Count 7.3 thou/uL (4.8-10.8)
[2022-06-09 07:11] LABS: Anion Gap 11 mmol/L (10-20); BUN (Urea Nitrogen) 22 mg/dL (9.8-20.1); Calc. Creatinine Clearance 36 mL/min (70-130); Calcium 8.1 mg/dL (7.8-10.44); Carbon Dioxide 25 mmol/L (23-31); Chloride 103 mmol/L (98-107); Estimated GFR 28; Glucose 108 mg/dL (83-110); Magnesium 2.2 mg/dL (1.6-2.6); Phosphorus 3.9 mg/dL (2.3-4.7); Potassium 3.9 mmol/L (3.5-5.1); Sodium 135 mmol/L (136-145)
[2022-06-09] MEDS ORDERED: Sodium Chloride 0.9% 1,000 ML IV SCH (08:15)
[2022-06-09] MEDS: Senokot S 8.6-50 MG TAB PO SCH ×2 (09:20→20:46)
[2022-06-09] MEDS: Polyethylene Glycol 3350 17 GM Packet PO SCH (09:20)
[2022-06-09] MEDS: Famotidine 20 MG TAB PO SCH (09:21)
[2022-06-09] MEDS: Melatonin 3 MG TAB PO SCH (20:46)
[2022-06-09] MEDS: Aspirin 81 mg Enteric Coated Tablet PO SCH (20:47)
[2022-06-09] MEDS: Rosuvastatin 10 MG TAB PO SCH (20:47)
[2022-06-09] MEDS: Amitriptyline HCl 10 MG TAB PO SCH (20:47)
[2022-06-09] MEDS ORDERED: Trospium 20 MG TAB PO SCH (21:00)
[2022-06-10] MEDS: Acetaminophen 325 MG TAB PO SCH ×3 (00:59→12:29)
[2022-06-10 06:28] LABS: Anion Gap 14 mmol/L (10-20); BUN (Urea Nitrogen) 22 mg/dL (9.8-20.1); Calc. Creatinine Clearance 41 mL/min (70-130); Calcium 8.1 mg/dL (7.8-10.44); Carbon Dioxide 18 mmol/L (23-31); Chloride 107 mmol/L (98-107); Estimated GFR 34; Glucose 90 mg/dL (83-110); Magnesium 1.9 mg/dL (1.6-2.6); Phosphorus 3.6 mg/dL (2.3-4.7); Potassium 4.2 mmol/L (3.5-5.1); Sodium 135 mmol/L (136-145)
[2022-06-10] MEDS: Famotidine 20 MG TAB PO SCH (09:03)
[2022-06-10] MEDS: Aspirin 81 mg Enteric Coated Tablet PO SCH (09:04)
[2022-06-10] MEDS: Polyethylene Glycol 3350 17 GM Packet PO SCH (09:05)
[2022-06-10] MEDS: Senokot S 8.6-50 MG TAB PO SCH (09:05)
[2022-06-10 12:44] VITALS: BP 146/79; TEMP 98.3
== END 2022-06-10 13:15 | DRG 480 ==
LOC: ERS 09:27 → SDC 14:16 → SURG A 18:44
PROVIDERS: ADMIT Nurse Practitioner Acute Care; ATTEND Surgery
PROC: 0QHB36Z Insertion of Intramedullary Internal Fixation Device into Right Lower Femur, Percutaneous Approach (ICD-10-PCS; principal; 2022-06-07)
PROC: 0PSH04Z Reposition Right Radius with Internal Fixation Device, Open Approach (ICD-10-PCS; 2022-06-07)
DX: S52.571A Other intraarticular fracture of lower end of right radius, initial encounter for closed fracture (principal); S72.141A Displaced intertrochanteric fracture of right femur, initial encounter for closed fracture; N17.9 Acute kidney failure, unspecified; W18.30XA Fall on same level, unspecified, initial encounter; Z20.822 Contact with and (suspected) exposure to COVID-19; E78.5 Hyperlipidemia, unspecified; I25.10 Atherosclerotic heart disease of native coronary artery without angina pectoris; E11.51 Type 2 diabetes mellitus with diabetic peripheral angiopathy without gangrene; I12.9 Hypertensive chronic kidney disease with stage 1 through stage 4 chronic kidney disease, or unspecified chronic kidney disease; E11.22 Type 2 diabetes mellitus with diabetic chronic kidney disease; G40.909 Epilepsy, unspecified, not intractable, without status epilepticus; D32.0 Benign neoplasm of cerebral meninges; N18.30 Chronic kidney disease, stage 3 unspecified; Z90.49 Acquired absence of other specified parts of digestive tract; Z98.84 Bariatric surgery status; Z91.040 Latex allergy status; Z88.2 Allergy status to sulfonamides; Z88.0 Allergy status to penicillin
CPT/HCPCS: 36415; 36416; 70450; 71045; 72170; 76000; 80048; 80053; 81001; 81003; 81015; 83735; 83880; 84100; 84484; 85025; 93005; 96374; 96375; 96376; C1713; G0390; J0360; J1956; J2270; J2370; J2405; J3475; J3490; J7050; S0020; S0028; U0002

== ENCOUNTER 2022-10-18 17:15 | Inpatient (IN) | payer MEDICARE, BC ==
[~2022-10-18 17:15] MED LIST: Iopamidol-370 76% 500 ML 1 ML ONE
[2022-10-18] MEDS ORDERED: hydrALAZINE 20 MG/ML VIAL ONE ×2 (18:00→19:31)
[2022-10-18] MEDS ORDERED: Nitroglycerin 2% Ointment 1 INCH/1 GM Packet ONE (18:00)
[2022-10-18 18:16] LABS: #Eosinphils 0.6 thou/uL (0.0-0.7); #Lymphocytes 2.1 thou/uL (1.20-3.40); #Monocytes 0.7 thou/uL (0.11-0.59); #Neutrophils 4.3 thou/uL (1.40-6.50); %Basophils 0.4 % (0.0-1.0); %Eosinophils 7.6 % (0.0-10.0); %Lymphocytes 27.5 % (21.0-51.0); %Monocytes 9.2 % (0.0-10.0); %Neutrophils 55.4 % (42.0-75.0); Hemoglobin 11.4 g/dL (12.0-16.0); Mean Corpuscular HGB CONC 31.7 g/dL (32.0-36.0); Mean Corpuscular Hemoglobin 27.1 pg (27.0-31.0); Mean Corpuscular Volume 85.6 fl (78.0-98.0); Platelet Count 231 10x3/uL (130-400); RBC Distribution Width 13.6 % (11.5-14.5); Red Blood Cell (RBC) Count 4.19 mill/uL (4.20-5.40); White Blood Cell (WBC) Count 7.7 10x3/uL (4.8-10.8)
[2022-10-18 18:38] LABS: ALT (SGPT) 9 U/L (8-55); AST (SGOT) 18 U/L (5-34); Alkaline Phosphatase 81 U/L (40-110); Anion Gap 15 mmol/L (10-20); BUN (Urea Nitrogen) 24 mg/dL (9.8-20.1); Bilirubin, Total 0.3 mg/dL (0.2-1.2); Calc. Creatinine Clearance 0 mL/min (70-130); Calcium 8.5 mg/dL (7.8-10.44); Carbon Dioxide 21 mmol/L (23-31); Chloride 107 mmol/L (98-107); Estimated GFR 30; Glucose 117 mg/dL (83-110); Potassium 4.2 mmol/L (3.5-5.1); Sodium 139 mmol/L (136-145)
[2022-10-18 19:01] LABS: CKMB 1.1 ng/mL (0-6.6)
[2022-10-18] MEDS ORDERED: Aspirin 325 MG TAB ONE (19:14)
[2022-10-18] MEDS ORDERED: Aspirin 300 MG Suppository ONE (19:39)
[2022-10-18] MEDS ORDERED: Ondansetron PF 4 MG/2 ML Vial ONE (20:07)
[2022-10-18] MEDS ORDERED: hydrALAZINE 20 MG/ML VIAL SLOW IVP PRN (21:49)
[2022-10-18] MEDS ORDERED: Ondansetron PF 4 MG/2 ML Vial IVP PRN (21:49)
[2022-10-18] MEDS ORDERED: Ondansetron ODT 4 MG TAB PO PRN (21:49)
[2022-10-18 22:14] LABS: Troponin I 0.392 ng/mL (< 0.028)
[2022-10-18] MEDS: Acetaminophen 325 MG TAB PO PRN (23:43)
[2022-10-19 01:22] LABS: Troponin I 0.455 ng/mL (< 0.028)
[2022-10-19 05:57] LABS: #Eosinphils 0.2 thou/uL (0.0-0.7); #Lymphocytes 2.2 thou/uL (1.20-3.40); #Monocytes 1.1 thou/uL (0.11-0.59); #Neutrophils 5.7 thou/uL (1.40-6.50); %Basophils 0.5 % (0.0-1.0); %Eosinophils 1.9 % (0.0-10.0); %Lymphocytes 23.8 % (21.0-51.0); %Monocytes 11.4 % (0.0-10.0); %Neutrophils 62.4 % (42.0-75.0); Hemoglobin 11.1 g/dL (12.0-16.0); Mean Corpuscular Hemoglobin 27.3 pg (27.0-31.0); Mean Corpuscular Volume 85.3 fl (78.0-98.0); Mean Platelet Volume 9.2 fL (7.4-10.4); Platelet Count 224 10x3/uL (130-400); RBC Distribution Width 13.7 % (11.5-14.5); Red Blood Cell (RBC) Count 4.07 mill/uL (4.20-5.40); White Blood Cell (WBC) Count 9.2 10x3/uL (4.8-10.8)
[2022-10-19 06:13] LABS: Anion Gap 14 mmol/L (10-20); BUN (Urea Nitrogen) 21 mg/dL (9.8-20.1); Calc. Creatinine Clearance 36 mL/min (70-130); Calcium 8.9 mg/dL (7.8-10.44); Carbon Dioxide 22 mmol/L (23-31); Cardiac Risk 3.7 (Less than 4.5); Chloride 107 mmol/L (98-107); Cholesterol 216 mg/dl (< 200 Desired); Estimated GFR 31; Glucose 111 mg/dL (83-110); HDL Cholesterol 58 mg/dL (>60 Neg Risk); LDL Cholesterol, Calculated 140 mg/dL; Potassium 4.2 mmol/L (3.5-5.1); Sodium 139 mmol/L (136-145); Triglycerides 91 mg/dL (Less than 150)
[2022-10-19] MEDS: Acetaminophen 650 MG Suppository PR PRN ×3 (06:15→20:16)
[2022-10-19] MEDS: Aspirin 81 mg Enteric Coated Tablet PO SCH (09:25)
[2022-10-19 10:31] LABS: Troponin I 0.489 ng/mL (< 0.028)
[2022-10-19] MEDS ORDERED: Labetalol HCl 100 MG/20 ML VIAL ONE (12:13)
[2022-10-19] MEDS ORDERED: Labetalol HCl 100 MG/20 ML VIAL SLOW IVP SCH (12:15)
[2022-10-19] MEDS ORDERED: Lorazepam 2 MG/ML VIAL SLOW IVP SCH ×2 (12:30)
[2022-10-19 15:08] LABS: Troponin I 0.491 ng/mL (< 0.028)
[2022-10-19 17:36] LABS: Bacteria/HPF None Seen HPF (None Seen); Bilirubin Negative (Negative); Blood, Urine 1+ (Negative); CAUTI Indications for Culture Alt mental st,lethar; Clarity Turbid (Clear); Glucose, Urine (Dipstick) 50 mg/dL (Negative); Ketone, Urine Negative (Negative); Leukocyte Negative Leu/uL (Negative); Nitrite Negative (Negative); Protein, Urine (Dipstick) 300 mg/dL (Neg-Trace); Squamous Epithelial 0-3 HPF (0-3); Urobilinogen Normal mg/dL (Less than 2); WBC/HPF 21-50 HPF (0-3)
[2022-10-19] MEDS ORDERED: diphenhydrAMINE 50 MG/ML VIAL IVP PRN (17:38)
[2022-10-19 17:42] LABS: Specific Gravity, Urine 1.045 (1.002-1.036)
[2022-10-19 17:43] LABS: Urine Culture Reflex Yes Yes
[2022-10-19] MEDS ORDERED: Aspirin 300 MG Suppository PR SCH (18:15)
[2022-10-19] MEDS ORDERED: cefTRIAXone\\ROCEPHIN 2 GM in Sodium Chloride 0.9% 100 ML IVPB SCH (19:00)
[2022-10-19] MEDS: Lactated Ringer's 1,000 ML IV SCH (19:02)
[2022-10-19 19:44] LABS: Critical Call Chem Troponin I RESULT DECREASING; Troponin I 0.477 ng/mL (< 0.028)
[2022-10-19] MEDS: Senokot S 8.6-50 MG TAB PO SCH (20:16)
[2022-10-19] MEDS: Amitriptyline HCl 10 MG TAB PO SCH (20:16)
[2022-10-19] MEDS: Sertraline 100 MG TAB PO SCH (20:16)
[2022-10-19] MEDS: Atorvastatin Calcium 40 MG TAB PO SCH (20:16)
[2022-10-19] MEDS ORDERED: Donepezil HCl 5 MG TAB PO SCH (21:00)
[2022-10-20] MEDS: Lorazepam 2 MG/ML VIAL SLOW IVP SCH ×2 (00:34→01:17)
[2022-10-20 05:03] LABS: Critical Call Chem Troponin I RESULT DECREASING; Troponin I 0.412 ng/mL (< 0.028)
[2022-10-20] MEDS ORDERED: Lorazepam 2 MG/ML VIAL ONE (07:50)
[2022-10-20] MEDS ORDERED: Lorazepam 2 MG/ML VIAL SLOW IVP SCH ×2 (08:00→18:00)
[2022-10-20] MEDS: Senokot S 8.6-50 MG TAB PO SCH ×2 (11:38→21:29)
[2022-10-20] MEDS: Aspirin 300 MG Suppository PR SCH (11:41)
[2022-10-20] MEDS ORDERED: Melatonin 3 MG TAB PO PRN (16:57)
[2022-10-20] MEDS: Lactated Ringer's 1,000 ML IV SCH (17:15)
[2022-10-20] MEDS: Amitriptyline HCl 10 MG TAB PO SCH (21:21)
[2022-10-20] MEDS: Atorvastatin Calcium 40 MG TAB PO SCH (21:22)
[2022-10-20] MEDS: Sertraline 100 MG TAB PO SCH (21:22)
[2022-10-20] MEDS: QUEtiapine 25 MG TAB PO SCH (21:22)
[2022-10-20] MEDS: Acetaminophen 325 MG TAB PO PRN (21:27)
[2022-10-20] MEDS: Melatonin 3 MG TAB PO SCH (22:57)
[2022-10-21] MEDS: Lactated Ringer's 1,000 ML IV SCH (00:45)
[2022-10-21] MEDS: Acetaminophen 325 MG TAB PO PRN (03:55)
[2022-10-21] MEDS: Aspirin 300 MG Suppository PR SCH (09:10)
[2022-10-21] MEDS: Senokot S 8.6-50 MG TAB PO SCH ×2 (09:16→20:28)
[2022-10-21 16:57] LABS: Prothrombin Time 13.2 sec (12.0-14.7)
[2022-10-21 16:58] LABS: D-Dimer Test 1.23 *mcg/mL (0.27-0.43)
[2022-10-21] MEDS: Atorvastatin Calcium 40 MG TAB PO SCH (20:28)
[2022-10-21] MEDS: Sertraline 100 MG TAB PO SCH (20:29)
[2022-10-21] MEDS: QUEtiapine 25 MG TAB PO SCH (20:29)
[2022-10-21] MEDS: Amitriptyline HCl 10 MG TAB PO SCH (20:29)
[2022-10-21] MEDS: Melatonin 3 MG TAB PO SCH (20:29)
[2022-10-22] MEDS ORDERED: Non-Formulary Item 1 EACH (Melatonin [Melatonin] 5 MG Tablet) PO PRN (08:11)
[2022-10-22] MEDS ORDERED: Melatonin 3 MG TAB PO PRN (08:34)
[2022-10-22] MEDS ORDERED: Non-Formulary Item 1 EACH (Losartan Potassium [Cozaar] 50 MG Tab) PO SCH (09:00)
[2022-10-22] MEDS ORDERED: FLU VACC QS2022-23(65YR UP)/PF 240 MCG/0.7 ML SYRINGE IM ONE (09:00)
[2022-10-22] MEDS: Senokot S 8.6-50 MG TAB PO SCH ×3 (09:31→21:38)
[2022-10-22] MEDS: Aspirin 81 mg Enteric Coated Tablet PO SCH ×2 (09:31→10:34)
[2022-10-22] MEDS: Losartan 25 MG TAB PO SCH ×2 (09:32→10:34)
[2022-10-22] MEDS ORDERED: Losartan 25 MG TAB PO SCH ×2 (12:10→12:30)
[2022-10-22] MEDS ORDERED: hydrALAZINE 20 MG/ML VIAL SLOW IVP PRN (12:37)
[2022-10-22] MEDS ORDERED: Aspirin 300 MG Suppository PR SCH (15:00)
[2022-10-22] MEDS ORDERED: QUEtiapine 25 MG TAB PO SCH (21:00)
[2022-10-22] MEDS: Sertraline 100 MG TAB PO SCH (21:37)
[2022-10-22] MEDS: Melatonin 3 MG TAB PO SCH (21:37)
[2022-10-22] MEDS: Amitriptyline HCl 10 MG TAB PO SCH (21:37)
[2022-10-22] MEDS: Nitrofurantoin Macrocrystal 50 MG CAP PO SCH (21:37)
[2022-10-22] MEDS: Atorvastatin Calcium 40 MG TAB PO SCH (21:37)
[2022-10-23] MEDS: Nitrofurantoin Macrocrystal 50 MG CAP PO SCH (03:52)
[2022-10-23 05:16] LABS: #Eosinphils 0.6 thou/uL (0.0-0.7); #Lymphocytes 1.3 thou/uL (1.20-3.40); #Monocytes 0.7 thou/uL (0.11-0.59); #Neutrophils 4.5 thou/uL (1.40-6.50); %Basophils 0.1 % (0.0-1.0); %Eosinophils 9.1 % (0.0-10.0); %Monocytes 9.7 % (0.0-10.0); Hemoglobin 12.4 g/dL (12.0-16.0); Mean Corpuscular HGB CONC 32.2 g/dL (32.0-36.0); Mean Platelet Volume 8.5 fL (7.4-10.4); Platelet Count 238 10x3/uL (130-400); RBC Distribution Width 13.6 % (11.5-14.5); Red Blood Cell (RBC) Count 4.41 mill/uL (4.20-5.40); White Blood Cell (WBC) Count 7.1 10x3/uL (4.8-10.8)
[2022-10-23 05:44] LABS: Anion Gap 12 mmol/L (10-20); BUN (Urea Nitrogen) 20 mg/dL (9.8-20.1); Calc. Creatinine Clearance 79 mL/min (70-130); Calcium 8.9 mg/dL (7.8-10.44); Carbon Dioxide 25 mmol/L (23-31); Chloride 106 mmol/L (98-107); Estimated GFR 30; Glucose 131 mg/dL (83-110); Potassium 3.6 mmol/L (3.5-5.1); Sodium 139 mmol/L (136-145)
[2022-10-23] MEDS: Aspirin 300 MG Suppository PR SCH (09:51)
[2022-10-23] MEDS ORDERED: Ciprofloxacin 500 MG TAB PO SCH (10:15)
[2022-10-23] MEDS: Losartan 25 MG TAB PO SCH (11:47)
[2022-10-23] MEDS: Aspirin 81 mg Enteric Coated Tablet PO SCH (13:38)
[2022-10-23] MEDS: Senokot S 8.6-50 MG TAB PO SCH ×2 (13:48→21:09)
[2022-10-23 15:05] LABS: Cardiolipin IgG Ab 1.1 GPL-U/mL (<10 Negative); Cardiolipin IgM Ab 2.4 MPL-U/mL (<10 Negative); EliA APS New Method **** NEW METHOD ****
[2022-10-23] MEDS: Clopidogrel Bisulfate 75 MG TAB PO SCH (15:57)
[2022-10-23] MEDS: hydrALAZINE 20 MG/ML VIAL SLOW IVP PRN (15:57)
[2022-10-23] MEDS ORDERED: Haloperidol Lactate 5 MG/ML VIAL IM SCH (19:00)
[2022-10-23] MEDS: Atorvastatin Calcium 40 MG TAB PO SCH (21:09)
[2022-10-23] MEDS: Melatonin 3 MG TAB PO SCH (21:09)
[2022-10-23] MEDS: Amitriptyline HCl 10 MG TAB PO SCH (21:09)
[2022-10-23] MEDS: Sertraline 100 MG TAB PO SCH (21:09)
[2022-10-23] MEDS: Ciprofloxacin 500 MG TAB PO SCH (21:09)
[2022-10-23] MEDS: QUEtiapine 25 MG TAB PO SCH (21:10)
[2022-10-24] MEDS ORDERED: cloNIDine 0.1 MG TAB PO SCH (01:45)
[2022-10-24] MEDS: Ciprofloxacin 500 MG TAB PO SCH ×2 (05:21→21:51)
[2022-10-24 05:40] LABS: #Eosinphils 0.6 thou/uL (0.0-0.7); #Lymphocytes 1.2 thou/uL (1.20-3.40); #Neutrophils 5.7 thou/uL (1.40-6.50); %Basophils 0.5 % (0.0-1.0); %Eosinophils 6.7 % (0.0-10.0); %Lymphocytes 14.2 % (21.0-51.0); %Monocytes 11.2 % (0.0-10.0); %Neutrophils 67.3 % (42.0-75.0); Hemoglobin 12.2 g/dL (12.0-16.0); Mean Corpuscular HGB CONC 31.4 g/dL (32.0-36.0); Mean Corpuscular Hemoglobin 26.8 pg (27.0-31.0); Mean Corpuscular Volume 85.5 fl (78.0-98.0); Mean Platelet Volume 8.7 fL (7.4-10.4); Platelet Count 257 10x3/uL (130-400); RBC Distribution Width 13.8 % (11.5-14.5); Red Blood Cell (RBC) Count 4.54 mill/uL (4.20-5.40); White Blood Cell (WBC) Count 8.5 10x3/uL (4.8-10.8)
[2022-10-24 05:58] LABS: Anion Gap 11 mmol/L (10-20); BUN (Urea Nitrogen) 17 mg/dL (9.8-20.1); Calc. Creatinine Clearance 73 mL/min (70-130); Calcium 9.1 mg/dL (7.8-10.44); Carbon Dioxide 27 mmol/L (23-31); Chloride 106 mmol/L (98-107); Estimated GFR 28; Glucose 125 mg/dL (83-110); Potassium 3.7 mmol/L (3.5-5.1); Sodium 140 mmol/L (136-145)
[2022-10-24] MEDS: Senokot S 8.6-50 MG TAB PO SCH ×2 (11:12→22:14)
[2022-10-24] MEDS: Clopidogrel Bisulfate 75 MG TAB PO SCH (11:12)
[2022-10-24] MEDS: Aspirin 81 mg Enteric Coated Tablet PO SCH (11:12)
[2022-10-24] MEDS: QUEtiapine 25 MG TAB PO SCH ×2 (11:12→21:51)
[2022-10-24] MEDS: Aspirin 300 MG Suppository PR SCH (11:13)
[2022-10-24] MEDS: Losartan 25 MG TAB PO SCH (11:22)
[2022-10-24] MEDS ORDERED: Amlodipine 10 MG TAB PO SCH (15:30)
[2022-10-24 18:00] VITALS: BMI 60.5
[2022-10-24] MEDS: Atorvastatin Calcium 40 MG TAB PO SCH (21:51)
[2022-10-24] MEDS: Sertraline 100 MG TAB PO SCH (21:51)
[2022-10-24] MEDS: Amitriptyline HCl 10 MG TAB PO SCH (21:51)
[2022-10-24] MEDS: Melatonin 3 MG TAB PO SCH (21:51)
[2022-10-25] MEDS: Ciprofloxacin 500 MG TAB PO SCH ×2 (05:34→19:43)
[2022-10-25] MEDS: Clopidogrel Bisulfate 75 MG TAB PO SCH ×3 (09:02→10:49)
[2022-10-25] MEDS: Losartan 25 MG TAB PO SCH ×3 (09:02→10:49)
[2022-10-25] MEDS: Amlodipine 5 MG TAB PO SCH ×3 (09:02→10:49)
[2022-10-25] MEDS: Aspirin 81 mg Enteric Coated Tablet PO SCH ×3 (09:02→10:49)
[2022-10-25] MEDS: Senokot S 8.6-50 MG TAB PO SCH ×5 (09:03→19:54)
[2022-10-25] MEDS: QUEtiapine 25 MG TAB PO SCH ×4 (09:03→19:43)
[2022-10-25 15:35] LABS: Factor VIII Test 227.7 % ACTIVE (56-157)
[2022-10-25] MEDS: Atorvastatin Calcium 40 MG TAB PO SCH ×2 (19:42→19:54)
[2022-10-25] MEDS: Melatonin 3 MG TAB PO SCH (19:42)
[2022-10-25] MEDS: Amitriptyline HCl 10 MG TAB PO SCH ×2 (19:42→19:54)
[2022-10-25] MEDS: Sertraline 100 MG TAB PO SCH (19:43)
[2022-10-26] MEDS ORDERED: hydrALAZINE 10 MG TAB PO SCH (02:00)
[2022-10-26] MEDS: hydrALAZINE 20 MG/ML VIAL SLOW IVP PRN ×2 (04:27→21:33)
[2022-10-26] MEDS: Ciprofloxacin 500 MG TAB PO SCH ×3 (05:56→21:28)
[2022-10-26] MEDS: Amlodipine 5 MG TAB PO SCH (09:32)
[2022-10-26] MEDS: Losartan 25 MG TAB PO SCH (09:33)
[2022-10-26] MEDS: Senokot S 8.6-50 MG TAB PO SCH ×2 (09:33→21:32)
[2022-10-26] MEDS: Aspirin 81 mg Enteric Coated Tablet PO SCH (09:33)
[2022-10-26] MEDS: QUEtiapine 25 MG TAB PO SCH ×2 (09:33→21:28)
[2022-10-26] MEDS: Clopidogrel Bisulfate 75 MG TAB PO SCH (09:33)
[2022-10-26] MEDS ORDERED: Amlodipine 10 MG TAB PO SCH (17:30)
[2022-10-26] MEDS: Atorvastatin Calcium 40 MG TAB PO SCH (21:31)
[2022-10-26] MEDS: Melatonin 3 MG TAB PO SCH (21:31)
[2022-10-26] MEDS: Sertraline 100 MG TAB PO SCH (21:31)
[2022-10-26] MEDS: Amitriptyline HCl 10 MG TAB PO SCH (21:31)
[2022-10-27] MEDS: Ciprofloxacin 500 MG TAB PO SCH (05:52)
[2022-10-27] MEDS: Losartan 25 MG TAB PO SCH (09:18)
[2022-10-27] MEDS: Clopidogrel Bisulfate 75 MG TAB PO SCH (09:18)
[2022-10-27] MEDS: QUEtiapine 25 MG TAB PO SCH ×2 (09:18→20:12)
[2022-10-27] MEDS: Senokot S 8.6-50 MG TAB PO SCH ×2 (09:18→20:17)
[2022-10-27] MEDS: Aspirin 81 mg Enteric Coated Tablet PO SCH (09:18)
[2022-10-27] MEDS: Amlodipine 10 MG TAB PO SCH (09:37)
[2022-10-27 10:35] LABS: Anion Gap 17 mmol/L (10-20); BUN (Urea Nitrogen) 35 mg/dL (9.8-20.1); Calc. Creatinine Clearance 57 mL/min (70-130); Carbon Dioxide 21 mmol/L (23-31); Chloride 108 mmol/L (98-107); Estimated GFR 21; Glucose 128 mg/dL (83-110); Sodium 142 mmol/L (136-145)
[2022-10-27 11:21] LABS: #Eosinphils 0.2 thou/uL (0.0-0.7); #Monocytes 0.6 thou/uL (0.11-0.59); #Neutrophils 5.1 thou/uL (1.40-6.50); %Basophils 0.5 % (0.0-1.0); %Eosinophils 2.5 % (0.0-10.0); %Lymphocytes 14.2 % (21.0-51.0); %Monocytes 8.8 % (0.0-10.0); %Neutrophils 74.1 % (42.0-75.0); Hemoglobin 11.8 g/dL (12.0-16.0); Mean Corpuscular Hemoglobin 27.3 pg (27.0-31.0); Mean Corpuscular Volume 85.3 fl (78.0-98.0); Mean Platelet Volume 9.3 fL (7.4-10.4); Platelet Count 248 10x3/uL (130-400); Red Blood Cell (RBC) Count 4.31 mill/uL (4.20-5.40); White Blood Cell (WBC) Count 6.8 10x3/uL (4.8-10.8)
[2022-10-27] MEDS: Sodium Chloride 0.9% 1,000 ML IV SCH (17:10)
[2022-10-27] MEDS: Amitriptyline HCl 10 MG TAB PO SCH (20:12)
[2022-10-27] MEDS: Melatonin 3 MG TAB PO SCH (20:12)
[2022-10-27] MEDS: hydrALAZINE 20 MG/ML VIAL SLOW IVP PRN (20:12)
[2022-10-27] MEDS: Atorvastatin Calcium 40 MG TAB PO SCH (20:12)
[2022-10-27] MEDS: Sertraline 100 MG TAB PO SCH (20:16)
[2022-10-28] MEDS: hydrALAZINE 20 MG/ML VIAL SLOW IVP PRN (04:45)
[2022-10-28 05:41] LABS: #Eosinphils 0.2 thou/uL (0.0-0.7); #Lymphocytes 1.2 thou/uL (1.20-3.40); #Monocytes 0.9 thou/uL (0.11-0.59); #Neutrophils 6.7 thou/uL (1.40-6.50); %Basophils 0.2 % (0.0-1.0); %Eosinophils 2.2 % (0.0-10.0); %Lymphocytes 13.1 % (21.0-51.0); %Monocytes 9.9 % (0.0-10.0); %Neutrophils 74.6 % (42.0-75.0); Hemoglobin 12.1 g/dL (12.0-16.0); Mean Corpuscular HGB CONC 32.4 g/dL (32.0-36.0); Mean Corpuscular Hemoglobin 27.5 pg (27.0-31.0); Platelet Count 250 10x3/uL (130-400); RBC Distribution Width 13.9 % (11.5-14.5); Red Blood Cell (RBC) Count 4.38 mill/uL (4.20-5.40)
[2022-10-28 06:04] LABS: Anion Gap 16 mmol/L (10-20); BUN (Urea Nitrogen) 36 mg/dL (9.8-20.1); Calc. Creatinine Clearance 63 mL/min (70-130); Calcium 9.1 mg/dL (7.8-10.44); Carbon Dioxide 21 mmol/L (23-31); Chloride 110 mmol/L (98-107); Estimated GFR 23; Glucose 119 mg/dL (83-110); Potassium 3.8 mmol/L (3.5-5.1); Sodium 143 mmol/L (136-145)
[2022-10-28] MEDS: Amlodipine 10 MG TAB PO SCH (08:35)
[2022-10-28] MEDS: Aspirin 81 mg Enteric Coated Tablet PO SCH (08:35)
[2022-10-28] MEDS: Clopidogrel Bisulfate 75 MG TAB PO SCH ×2 (08:36→09:24)
[2022-10-28] MEDS: QUEtiapine 25 MG TAB PO SCH ×2 (08:36→09:24)
[2022-10-28] MEDS: Sodium Chloride 0.9% 1,000 ML IV SCH (08:37)
[2022-10-28] MEDS: Senokot S 8.6-50 MG TAB PO SCH ×2 (08:59→09:24)
[2022-10-28] MEDS ORDERED: cloNIDine 0.2mg/24 Hour PATCH TD SCH (10:00)
[2022-10-28 11:53] VITALS: BP 176/79; TEMP 97.5
[2022-10-30 17:13] LABS: Activated Protein C Resistance 2.6 ratio (.)
[2022-10-31 13:50] LABS: HEX PHOS LA Tube 1 47.7 SEC; HEX PHOS LA Tube 2 41.1 SEC; Hexagonal Phospholipid Neut 6.6 SEC (0-8.0)
[2022-10-31 15:13] LABS: Protein C Activity 107 % (78-152)
== END 2022-10-28 13:15 | DRG 64 ==
LOC: ERS 17:15 → NEURO 20:03
PROVIDERS: ADMIT Family Medicine; ATTEND Family Medicine
DX: I63.9 Cerebral infarction, unspecified (principal); G93.41 Metabolic encephalopathy; N39.0 Urinary tract infection, site not specified; N17.9 Acute kidney failure, unspecified; G81.91 Hemiplegia, unspecified affecting right dominant side; I16.1 Hypertensive emergency; F05 Delirium due to known physiological condition; R29.704 NIHSS score 4; Z20.822 Contact with and (suspected) exposure to COVID-19; Z96.0 Presence of urogenital implants; B95.4 Other streptococcus as the cause of diseases classified elsewhere; E78.5 Hyperlipidemia, unspecified; I48.0 Paroxysmal atrial fibrillation; E11.22 Type 2 diabetes mellitus with diabetic chronic kidney disease; I25.10 Atherosclerotic heart disease of native coronary artery without angina pectoris; I12.9 Hypertensive chronic kidney disease with stage 1 through stage 4 chronic kidney disease, or unspecified chronic kidney disease; G40.909 Epilepsy, unspecified, not intractable, without status epilepticus; K21.9 Gastro-esophageal reflux disease without esophagitis; R47.89 Other speech disturbances; R47.81 Slurred speech; D63.1 Anemia in chronic kidney disease; R77.8 Other specified abnormalities of plasma proteins; D32.0 Benign neoplasm of cerebral meninges; R29.810 Facial weakness; R29.6 Repeated falls; N18.32 Chronic kidney disease, stage 3b; Z95.818 Presence of other cardiac implants and grafts; Z91.199 Patient's noncompliance with other medical treatment and regimen due to unspecified reason; Z88.0 Allergy status to penicillin; Z88.2 Allergy status to sulfonamides; Z88.8 Allergy status to other drugs, medicaments and biological substances; Z91.09 Other allergy status, other than to drugs and biological substances; Z79.899 Other long term (current) drug therapy; Z79.82 Long term (current) use of aspirin; Z94.7 Corneal transplant status; Z98.890 Other specified postprocedural states; Z91.81 History of falling
CPT/HCPCS: 36415; 36416; 70450; 70496; 70498; 70551; 80048; 80053; 80061; 81001; 82140; 82553; 83090; 84484; 85025; 85240; 85300; 85303; 85305; 85307; 85379; 85598; 85610; 85730; 86147; 87086; 87811; 93005; 93010; 93306; 95712; 95816; 95819; 95957; 96374; J0360; J0696; J1630; J1650; J2060; J2405; J3490; J7050; J7120; Q9967; U0003; U0005

== ENCOUNTER 2022-11-24 10:01 | Emergency (ER) | payer BC, MEDICARE ==
[~2022-11-24 10:01] MED LIST changes: -Iopamidol-370 76% 500 ML 1 ML ONE; +cloNIDine 0.2mg/24 Hour PATCH TD SCH
[2022-11-24 11:42] LABS: #Eosinphils 0.3 thou/uL (0.0-0.7); #Lymphocytes 1.1 thou/uL (1.20-3.40); #Monocytes 0.5 thou/uL (0.11-0.59); #Neutrophils 4.2 thou/uL (1.40-6.50); %Basophils 0.2 % (0.0-1.0); %Eosinophils 4.4 % (0.0-10.0); %Lymphocytes 18.1 % (21.0-51.0); %Neutrophils 69.3 % (42.0-75.0); Hemoglobin 13.1 g/dL (12.0-16.0); Mean Corpuscular HGB CONC 31.3 g/dL (32.0-36.0); Mean Corpuscular Hemoglobin 26.6 pg (27.0-31.0); Mean Platelet Volume 8.7 fL (7.4-10.4); Platelet Count 221 10x3/uL (130-400); RBC Distribution Width 14.6 % (11.5-14.5); Red Blood Cell (RBC) Count 4.92 mill/uL (4.20-5.40); White Blood Cell (WBC) Count 6.1 10x3/uL (4.8-10.8)
[2022-11-24 11:56] LABS: ALT (SGPT) 15 U/L (8-55); AST (SGOT) 27 U/L (5-34); Albumin 3.2 g/dL (3.4-4.8); Alkaline Phosphatase 86 U/L (40-110); Anion Gap 15 mmol/L (10-20); BUN (Urea Nitrogen) 30 mg/dL (9.8-20.1); Bilirubin, Total 0.4 mg/dL (0.2-1.2); Calc. Creatinine Clearance 0 mL/min (70-130); Calcium 9.9 mg/dL (7.8-10.44); Carbon Dioxide 23 mmol/L (23-31); Chloride 107 mmol/L (98-107); Estimated GFR 29; Globulin 3.6 g/dL (2.4-3.5); Glucose 126 mg/dL (83-110); Potassium 4.1 mmol/L (3.5-5.1); Protein, Total 6.8 g/dL (5.8-8.1); Sodium 141 mmol/L (136-145)
[2022-11-24 12:18] LABS: CKMB 3.1 ng/mL (0-6.6)
== END 2022-11-24 12:53 | disposition home or self-care (01) ==
LOC: ERS 10:01
DX: I10 Essential (primary) hypertension (principal); E11.9 Type 2 diabetes mellitus without complications; E78.00 Pure hypercholesterolemia, unspecified; K21.9 Gastro-esophageal reflux disease without esophagitis; Z79.82 Long term (current) use of aspirin; Z79.899 Other long term (current) drug therapy
CPT/HCPCS: 36415; 80053; 82553; 84484; 85025; 93005

== ENCOUNTER 2023-07-28 06:04 | Observation (INO) | payer BC ==
[2023-07-28] MEDS ORDERED: Haloperidol Lactate 5 MG/ML VIAL ONE (06:30)
[2023-07-28 07:15] LABS: #Eosinphils 0.3 thou/uL (0.0-0.7); #Monocytes 0.6 thou/uL (0.11-0.59); #Neutrophils 6.5 thou/uL (1.40-6.50); %Basophils 0.5 % (0.0-1.0); %Eosinophils 3.2 % (0.0-10.0); %Monocytes 6.9 % (0.0-10.0); Hematocrit 37.9 % (36.0-47.0); Hemoglobin 11.9 g/dL (12.0-16.0); Mean Corpuscular HGB CONC 31.4 g/dL (32.0-36.0); Mean Corpuscular Volume 92.4 fl (78.0-98.0); Platelet Count 222 10x3/uL (130-400); RBC Distribution Width 14.3 % (11.5-14.5); White Blood Cell (WBC) Count 8.4 10x3/uL (4.8-10.8)
[2023-07-28 07:33] LABS: PTT 35.6 sec (22.9-36.1); Prothrombin Time 13.3 sec (12.0-14.7)
[2023-07-28 07:38] LABS: ALT (SGPT) 39 U/L (8-55); AST (SGOT) 71 U/L (5-34); Albumin 3.9 g/dL (3.4-4.8); Alkaline Phosphatase 92 U/L (40-110); Anion Gap 15 mmol/L (10-20); BUN (Urea Nitrogen) 27 mg/dL (9.8-20.1); Bilirubin, Total 0.4 mg/dL (0.2-1.2); Calc. Creatinine Clearance 0 mL/min (70-130); Calcium 9.2 mg/dL (7.8-10.44); Carbon Dioxide 23 mmol/L (23-31); Chloride 109 mmol/L (98-107); Estimated GFR 30; Globulin 2.5 g/dL (2.4-3.5); Glucose 106 mg/dL (83-110); Potassium 4.2 mmol/L (3.5-5.1); Protein, Total 6.4 g/dL (5.8-8.1); Sodium 143 mmol/L (136-145)
[2023-07-28 07:42] LABS: Troponin I Less than 0.010 ng/mL (< 0.028)
[2023-07-28] MEDS ORDERED: LORazepam 2 MG/ML SYR.(CARPUJECT) ONE (08:12)
[2023-07-28] MEDS ORDERED: Acetaminophen 325 MG TAB PO PRN (09:24)
[2023-07-28] MEDS ORDERED: Ondansetron ODT 4 MG TAB PO PRN (09:24)
[2023-07-28] MEDS ORDERED: Ondansetron PF 4 MG/2 ML Vial IVP PRN (09:24)
[2023-07-28 10:26] LABS: Bilirubin Negative (Negative); Blood, Urine Negative (Negative); CAUTI Indications for Culture Alt mental st,lethar; Clarity Clear (Clear); Glucose, Urine (Dipstick) Normal (Negative); Ketone, Urine Negative (Negative); Leukocyte 25 Leu/uL (Negative); Nitrite Negative (Negative); Protein, Urine (Dipstick) 300 mg/dL (Neg-Trace); RBC/HPF 0-3 HPF (0-3); Specific Gravity, Urine 1.042 (1.002-1.036); Squamous Epithelial None Seen HPF (0-3); Urobilinogen Normal mg/dL (Less than 2)
[2023-07-28 10:27] LABS: Bacteria/HPF Rare-Few HPF (None Seen); Urine Culture Reflex No No
[2023-07-28] MEDS ORDERED: Iopamidol-370 76% 500 ML MDV (1 ML CHARGE) ONE (10:37)
== END 2023-07-28 12:37 | disposition home or self-care (01) ==
LOC: ERS 06:04 → ERHOLD 07:49
PROVIDERS: ADMIT Hospitalist; ATTEND Hospitalist
DX: I25.10 Atherosclerotic heart disease of native coronary artery without angina pectoris (principal); D32.9 Benign neoplasm of meninges, unspecified; I48.91 Unspecified atrial fibrillation; E11.9 Type 2 diabetes mellitus without complications; I10 Essential (primary) hypertension; K21.9 Gastro-esophageal reflux disease without esophagitis; E78.5 Hyperlipidemia, unspecified; R41.82 Altered mental status, unspecified; Z91.048 Other nonmedicinal substance allergy status; Z88.8 Allergy status to other drugs, medicaments and biological substances; Z88.1 Allergy status to other antibiotic agents; Z88.0 Allergy status to penicillin; Z88.2 Allergy status to sulfonamides; Z95.5 Presence of coronary angioplasty implant and graft; Z98.84 Bariatric surgery status; Z79.02 Long term (current) use of antithrombotics/antiplatelets; Z79.82 Long term (current) use of aspirin; Z79.899 Other long term (current) drug therapy; Z79.84 Long term (current) use of oral hypoglycemic drugs; Z98.890 Other specified postprocedural states
CPT/HCPCS: 36415; 51701; 70450; 70496; 70498; 71045; 80053; 81001; 84484; 85025; 85610; 85730; 87077; 87086; 87186; 93005; 96361; 96372; 96374; J1630; J2060; Q9967